=== PATIENT | female | born 1995 | race Caucasian/White ===

== ENCOUNTER 2018-04-19 15:12 | Observation (INO) ==
[2018-04-19 15:44] LABS: Basophils % 0.1 %; Eosinophils # 0.1 K/mcL (0.0-0.6); Hematocrit 33.2 % (35.3-44.9); Hemoglobin 10.6 g/dL (11.5-15.4); Immature Granulocytes % 0.3 % (0-4); Lymphocytes # 1.2 K/mcL (0.6-4.6); Lymphocytes % 14.2 %; Mean Corpuscular HGB Conc 31.9 g/dL (31.6-35.5); Mean Corpuscular Hemoglobin 26.4 pg (28.0-33.3); Mean Corpuscular Volume 82.6 fL (83.0-100.0); Mean Platelet Volume 12.2 fL (9.4-12.4); Monocytes # 0.6 K/mcL (0.0-1.3); Monocytes % 7.4 %; Neutrophils # 6.6 K/mcL (1.6-8.9); Platelet Count 194 K/mcL (140-400); Red Blood Count 4.02 M/mcL (3.82-4.97); Red Cell Distribution Width 13.4 % (11.5-14.5)
[2018-04-19 16:03] LABS: Alanine Aminotransferase 6 Units/L (7-52); Aspartate Amino Transferase 10 Units/L (13-39); BUN/Creatinine Ratio 10 (6-26); Blood Urea Nitrogen 4 mg/dL (6-20); Lactate Dehydrogenase 113 Units/L (140-271); Uric Acid 2.2 mg/dL (2.3-7.6); eGFR For Non-African Americans > 60 (> 60)
[2018-04-19 16:07] LABS: Protein/Creatinine Ratio,Urine 0.15 mg/mg (0.00-0.20)
[2018-04-19 16:08] LABS: Amphetamine Screen,Urine Negative ng/mL (Cutoff=1000); Barbiturate Screen,Urine Negative ng/mL (Cutoff=200); Benzodiazepines Screen,Urine Negative ng/mL (Cutoff=200); Cannabinoid Screen,Urine Negative ng/mL (Cutoff = 50); Cocaine Screen,Urine Negative ng/mL (Cutoff= 300); Opiate Screen,Urine Negative ng/mL (Cutoff=300); Phencyclidine Screen,Urine Negative ng/mL (Cutoff=25)
--- NOTE | 2018-04-19 16:32 | Discharge Summary ---
Date of Encounter: 04/19/18 Time of Encounter: 16:32 - Discharge Diagnosis (1) 25 weeks gestation of Priority: Primary Status: Acute Comments: Admit to observation for PIH evaluation Patient reports rare contractions but declined speculum exam for evaluation. (2) Elevated blood pressure affecting in second trimester, antepartum Priority: Secondary Status: Acute Comments: PIH evaluation all WNL, normotensive BP (3) Anemia affecting in second trimester Priority: Secondary Status: Acute Comments: RX sent to begin daily iron supplementation. Hgb 10.6 on CBC today. - Discharge Medications Prescriptions: New Ferrous Sulfate 325 mg PO DAILY #30 tablet Continue Vit No.129/Iron/FA [ One Daily Tablet] 1 each PO DAILY Home Medications: Ferrous Sulfate 325 mg PO DAILY #30 tablet 04/19/18 [Rx] Vit No.129/Iron/FA [ One Daily Tablet] 1 each PO DAILY 04/19/18 [History] Allergies/Adverse Reactions: Allergy/AdvReac Type Severity Reaction Status Date / Time Loracarbef [From Lorabid] Allergy Rash Verified 04/19/18 15:51 Data Procedures and tests throughout hospitalization: Laboratory Tests 04/19/18 04/19/18 04/19/18 15:30 15:30 15:34 WBC 8.6 RBC 4.02 Hgb 10.6 L Hct 33.2 L MCV 82.6 L MCH 26.4 L MCHC 31.9 RDW 13.4 Plt Count 194 MPV 12.2 Immature Gran % 0.3 Seg Neutrophils % 77.0 Lymphocytes % 14.2 Monocytes % 7.4 Eosinophils % 1.0 Basophils % 0.1 Neutrophils # 6.6 Lymphocytes # 1.2 Monocytes # 0.6 Eosinophils # 0.1 Basophils # 0.0 BUN Creatinine Est GFR ( Amer) Est GFR (Non-Af Amer) BUN/Creatinine Ratio Uric Acid AST ALT Lactate Dehydrogenase Urine Creatinine 192 Protein/Creatinin Ratio 0.15 Urine Total Protein 29 H Urine Opiates Screen Negative Ur Barbiturates Screen Negative Ur Phencyclidine Scrn Negative Ur Amphetamines Screen Negative U Benzodiazepines Scrn Negative Urine Cocaine Screen Negative U Marijuana (THC) Screen Negative Ur Drug Screen Interp See Below 04/19/18 15:34 WBC RBC Hgb Hct MCV MCH MCHC RDW Plt Count MPV Immature Gran % Seg Neutrophils % Lymphocytes % Monocytes % Eosinophils % Basophils % Neutrophils # Lymphocytes # Monocytes # Eosinophils # Basophils # BUN 4 L Creatinine 0.41 L Est GFR ( Amer) > 60 Est GFR (Non-Af Amer) > 60 BUN/Creatinine Ratio 10 Uric Acid 2.2 L AST 10 L ALT 6 L Lactate Dehydrogenase 113 L Urine Creatinine Protein/Creatinin Ratio Urine Total Protein Urine Opiates Screen Ur Barbiturates Screen Ur Phencyclidine Scrn Ur Amphetamines Screen U Benzodiazepines Scrn Urine Cocaine Screen U Marijuana (THC) Screen Ur Drug Screen Interp Labs on day of discharge: Labs from last 24 hours 04/19/18 04/19/18 04/19/18 15:34 15:34 15:30 WBC 8.6 RBC 4.02 Hgb 10.6 L Hct 33.2 L MCV 82.6 L MCH 26.4 L MCHC 31.9 RDW 13.4 Plt Count 194 MPV 12.2 Immature Gran % 0.3 Seg Neutrophils % 77.0 Lymphocytes % 14.2 Monocytes % 7.4 Eosinophils % 1.0 Basophils % 0.1 Neutrophils # 6.6 Lymphocytes # 1.2 Monocytes # 0.6 Eosinophils # 0.1 Basophils # 0.0 BUN 4 L Creatinine 0.41 L Est GFR ( Amer) > 60 Est GFR (Non-Af Amer) > 60 BUN/Creatinine Ratio 10 Uric Acid 2.2 L AST 10 L ALT 6 L Lactate Dehydrogenase 113 L Urine Creatinine 192 Protein/Creatinin Ratio 0.15 Urine Total Protein 29 H Urine Opiates Screen Ur Barbiturates Screen Ur Phencyclidine Scrn Ur Amphetamines Screen U Benzodiazepines Scrn Urine Cocaine Screen U Marijuana (THC) Screen Ur Drug Screen Interp 04/19/18 15:30 WBC RBC Hgb Hct MCV MCH MCHC RDW Plt Count MPV Immature Gran % Seg Neutrophils % Lymphocytes % Monocytes % Eosinophils % Basophils % Neutrophils # Lymphocytes # Monocytes # Eosinophils # Basophils # BUN Creatinine Est GFR ( Amer) Est GFR (Non-Af Amer) BUN/Creatinine Ratio Uric Acid AST ALT Lactate Dehydrogenase Urine Creatinine Protein/Creatinin Ratio Urine Total Protein Urine Opiates Screen Negative Ur Barbiturates Screen Negative Ur Phencyclidine Scrn Negative Ur Amphetamines Screen Negative U Benzodiazepines Scrn Negative Urine Cocaine Screen Negative U Marijuana (THC) Screen Negative Ur Drug Screen Interp See Below Date of admission: 04/19/18 15:12 Discharging clinician: Heidi Maya Anticipated date of discharge: 04/19/18 - Patient Status Disposition: Home, Self-Care Condition: Good Functional capacity at discharge: independent ambulation Overall status at discharge: patient is progressing back to baseline - Discharge Instructions Additional Instructions: LABOR AND DELIVERY DISCHARGE INSTRUCTIONS Signs and Symptoms to be Reported to your Doctor Immediately: * Sudden gush, continuous or intermittent lead of fluid from vagina (note the time of gush and color of fluid) * Onset of bright red vaginal bleeding with or without pain (if you had a vaginal exam during this visit you may notice some dark red spotting. This is normal.) * Lower abdominal cramping or backache that is premenstrual-like feeling. * More than 6 contractions in one hour. * Burning during urination, having to urinate more frequently or pain in your mid-back. * A change in the baby's activity. This could be an increase or decrease in activity. * Severe headache which does not go away with tylenol. * Sudden swelling in the face, hands, arms and/or legs. * Upper abdominal pain - sometimes associated with heartburn or nausea and is not relieved by Maalox, Mylanta or Tums. * Dizziness or blurred vision or visual disturbances (seeing stars/lights). * Kick Counts One hour after a meal, lay down on one side in a quiet place. Count the number of tran the baby moves during an hour. If less than 6 movements, notify your physician. Diet: *Force fluids - 8-10 tall glasses of fluid per day. May include popsicles and jello. *Limit caffeine - this includes chocolate, coffee, tea, any soft drink containing such as all collette, Babak Yellow and Mountain Dew - Diet and Activity Activity: resume usual activities as tolerated Diet: regular diet Hospital Course NURSE CHEMICAL DEPENDENCY Time Attestation: Total time spent providing and/or coordinating discharge services: Time Spent: Less than 30 minutes Exam - Constitutional General appearance IM: A&O X 3, pleasant, no acute distress, answers questions appropriately - Respiratory Respiratory exam: Present: CTAB - Cardiovascular Cardiovascular exam IM: Present: RRR, +S1, +S2 - GI/Abdominal GI/Abdominal exam IM: normal bowel sounds, soft - Rectal Rectal exam: deferred - Extremities Exam Extremities exam IM: Present: full ROM, normal capillary refill, normal inspection - Neurological Exam Neurological exam: alert, normal gait, oriented X3 - VTE Reasons for not Prescribing Prophylaxis: Treatment not Indicated - Low risk for VTE
== END 2018-04-19 16:36 | disposition home or self-care (01) ==
LOC: 1NENULAB
PROVIDERS: ADMIT Registered Nurse; ATTEND Registered Nurse

== ENCOUNTER → 2018-06-07 23:15 | Observation (INO) ==
[2018-06-07 18:31] LABS: Bilirubin,Urine Negative (Negative); Blood,Urine Negative (Negative); Clarity,Urine Clear (Clear); Color,Urine Dark Yellow (Yellow); Glucose,Urine (UA) 500 mg/dL (Normal); Ketones,Urine Trace mg/dL (Negative); Leukocyte Esterase,Urine Small (Negative); Nitrite,Urine Negative (Negative); Protein,Urine 30 mg/dL (Neg-Trace); Specific Gravity,Urine 1.027 (1.010-1.025); Urobilinogen,Urine Normal (Normal)
[2018-06-07 18:40] LABS: Amphetamine Screen,Urine Negative ng/mL (Cutoff=1000); Barbiturate Screen,Urine Negative ng/mL (Cutoff=200); Benzodiazepines Screen,Urine Negative ng/mL (Cutoff=200); Cannabinoid Screen,Urine Negative ng/mL (Cutoff = 50); Cocaine Screen,Urine Negative ng/mL (Cutoff= 300); Opiate Screen,Urine Negative ng/mL (Cutoff=300); Phencyclidine Screen,Urine Negative ng/mL (Cutoff=25)
--- NOTE | 2018-06-07 21:12 | OB/GYN Progress Note ---
Date of Encounter: 06/07/18 Time of Encounter: 21:01 - Assessment and Plan (1) 32 weeks gestation of Current Visit: Yes Status: Acute Admit to observation for contractions. (2) uterine contractions in third trimester, antepartum Current Visit: Yes Status: Acute -Initiate [place] course -IV fluids -Patient offered Procardia and Terbutaline to stop contractions. She refused both medications. States she was given Procardia in her previous and her heart rate slowed so much, she was unable to be awakened. She declined the Terbutaline after reviewing the side effects of the medication. She states she has anxiety and is feeling SOB and some upper chest pain. SPO2 monitor on at 99% on RA, heart rate low 100's. -Risks and benefits of receiving either of these medications reviewed and patient still declines both. -Patient is agreeable to staying overnight for observation with IV hydration. -Plan of care made in consultation with Dr. Monreal (3) NST (non-stress test) reactive Current Visit: Yes Status: Acute FHR 135 bpm, moderate variability, +15x15 accels, no decels. (4) Previous delivery in third trimester, antepartum Current Visit: Yes Status: Acute Previous delivery at 34 weeks in 2016 Subjective - Subjective Principal diagnosis: contractions Interval history: Mariah is a at 32w5d who presents to L&D with complaint of contractions all day today. She has a history of one at 34 weeks gestation and is currently on vaginal progesterone. Her last cervical length in February was 3.9cm. Today, she reports positive movement, denies vaginal bleeding and vaginal leakage. On arrival, she is noted to be cyndie frequently. Cervix is 1 cm and no change is noted in 3 hours. Antepartum ROS: movement normal, contractions, no loss of fluid, no vaginal bleeding Objective - Vital Signs Vital Signs: Vital Signs Resp 06/07/18 17:59 14 Intake and Output 06/07/18 06/07/18 06/07/18 07:59 15:59 23:59 Other: Weight 101 kg Patient Weight 06/07/18 23:59 Weight 101 kg - Exam FHR: category 1 FHR comments: FHR 135 bpm, moderate variability, +15x15 accels, no decels. Auscultation: bilateral: normal Abdomen: Present: normal appearance, soft, tenderness Cervical dilation: 1 cm Cervix effacement: 50% station: -3 - Labs Labs: Abnormal lab results Ur Specific [place] 1.027 (1.010-1.025) H 06/07/18 10:02 30 mg/dL (Neg-Trace) H 06/07/18 10:02 500 mg/dL (Normal) H 06/07/18 10:02 Trace mg/dL (Negative) H 06/07/18 10:02 Ur Leukocyte Esterase Small (Negative) H 06/07/18 10:02
--- NOTE | 2018-06-07 22:27 | Discharge Summary ---
Date of Encounter: 06/07/18 - Discharge Diagnosis (1) 32 weeks gestation of Status: Acute (2) uterine contractions in third trimester, antepartum Status: Acute (3) NST (non-stress test) reactive Status: Acute (4) Previous delivery in third trimester, antepartum Status: Acute - Discharge Medications Prescriptions: No Action Vit No.129/Iron/FA [ One Daily Tablet] 1 each PO DAILY Ferrous Sulfate 325 mg PO DAILY #30 tablet Progesterone 1 mg VG DAILY Home Medications: Ferrous Sulfate 325 mg PO DAILY #30 tablet 04/19/18 [Rx] Vit No.129/Iron/FA [ One Daily Tablet] 1 each PO DAILY 04/19/18 [History] Progesterone 1 mg VG DAILY 06/07/18 [History] Allergies/Adverse Reactions: Allergy/AdvReac Type Severity Reaction Status Date / Time Loracarbef [From Lorabid] Allergy Rash Verified 04/19/18 15:51 Data Procedures and tests throughout hospitalization: Laboratory Tests 06/07/18 06/07/18 10:02 17:59 Urine Color Dark Yellow Urine Clarity Clear Urine pH 7.0 Ur Specific [place] 1.027 H Urine Protein 30 H Urine Glucose (UA) 500 H Urine Ketones Trace H Urine Blood Negative Urine Nitrite Negative Urine Bilirubin Negative Urine Urobilinogen Normal Ur Leukocyte Esterase Small H Urine Opiates Screen Negative Ur Barbiturates Screen Negative Ur Phencyclidine Scrn Negative Ur Amphetamines Screen Negative U Benzodiazepines Scrn Negative Urine Cocaine Screen Negative U Marijuana (THC) Screen Negative Ur Drug Screen Interp See Below Labs on day of discharge: Labs from last 24 hours 06/07/18 06/07/18 17:59 10:02 Urine Color Dark Yellow Urine Clarity Clear Urine pH 7.0 Ur Specific [place] 1.027 H Urine Protein 30 H Urine Glucose (UA) 500 H Urine Ketones Trace H Urine Blood Negative Urine Nitrite Negative Urine Bilirubin Negative Urine Urobilinogen Normal Ur Leukocyte Esterase Small H Urine Opiates Screen Negative Ur Barbiturates Screen Negative Ur Phencyclidine Scrn Negative Ur Amphetamines Screen Negative U Benzodiazepines Scrn Negative Urine Cocaine Screen Negative U Marijuana (THC) Screen Negative Ur Drug Screen Interp See Below Preliminary micro results at discharge 06/07/18 10:02 Urine Culture - Preliminary Urine,Clean Catch Culture is incubating. Date of admission: 06/07/18 17:43 Hospital Course BUSINESS INTERN Time Attestation: Total time spent providing and/or coordinating discharge services: Exam - Constitutional Vitals: Resp 14 06/07/18 17:59 - VTE Reasons for not Prescribing Prophylaxis: Treatment not Indicated - Low risk for VTE
--- NOTE | 2018-06-07 22:37 | OB Labor Progress Note ---
Date of Encounter: 06/07/18 Time of Encounter: 22:33 Labor Progress Note - Subjective Subjective: Pt reports uc's getting stronger, no vb or lof. She states she feels like she is changing - Heart Tones Heart Tones: RNST - [place]: uc's q 2 min - Plan Plan: Pt reports uc's getting stronger and cvx was 1/th/high and she is now 2-3 /th/- 2. D/w pt concern over delivery and advised transfer to [facility] and she concurs. I spoke with [facility] and she was accepted in transfer.
[~2018-06-07 23:15] MED LIST: AMPICILLIN IVPB ONE; Betamethasone Acet/SodPhos 6 MG/ML MDV IM SCH; NIFEdipine 10 MG CAPSULE PO ONE; Ringers Solution, Lactated 1,000 ML IVC SCH; SODIUM CHLORIDE MINI 0.9% IVPB ONE; Terbutaline 1 MG/ML VIAL SQ ONE
== END | disposition other institution (70) ==
LOC: 1NENULAB
PROVIDERS: ADMIT Advanced Practice Midwife; ATTEND Advanced Practice Midwife

== ENCOUNTER → 2018-06-13 21:07 | Observation (INO) ==
--- NOTE | 2018-06-13 20:12 | OB/GYN Progress Note ---
Date of Encounter: 06/13/18 Time of Encounter: 20:08 - Assessment and Plan (1) 33 weeks gestation of Current Visit: Yes Status: Acute admitted for labor evaluation and rule out rupture of membranes (2) Vaginal discharge during in third trimester Current Visit: Yes Status: Acute speculum exam Subjective - Subjective Principal diagnosis: vaginal discharge Interval history: Patient is a 22 at 33w4d presents to labor and delivery with complaints leaking fluid last night. Patient reports "just feeling wet" today. Patient reports when she wiped she has some pink in her discharge. Patient reports occasional contractions and good movement. Patient reports she had labor last week and was sent to [facility]. She received both Steroid injections. Patient reports in office on 06/10/18 she was dilated 2cm. Patient denies any urinary symptoms, denies vaginal itching or burning. Patient denies intercourse in past 48 hours. Antepartum ROS: movement normal, contractions (occasional contractions), no vaginal bleeding Objective - Vital Signs Vital Signs: Intake and Output 06/13/18 06/13/18 06/13/18 07:59 15:59 23:59 Other: Weight 100.244 kg Patient Weight 06/13/18 23:59 Weight 100.244 kg - Exam FHR: auscultation normal, category 1 FHR comments: FHR baseline 140 bpm moderate variability +15x15 accels no decels noted. Auscultation: bilateral: normal Abdomen: Present: normal appearance, soft, gravid Uterus: Present: normal Cervical dilation: 2 Cervix effacement: 50 station: -3, ballotable Comments: Speculum exam: Negative pooling, negative nitrazine, Negative FERN.
[2018-06-13 20:29] LABS: Amphetamine Screen,Urine Negative ng/mL (Cutoff=1000); Barbiturate Screen,Urine Negative ng/mL (Cutoff=200); Benzodiazepines Screen,Urine Negative ng/mL (Cutoff=200); Cannabinoid Screen,Urine Negative ng/mL (Cutoff = 50); Cocaine Screen,Urine Negative ng/mL (Cutoff= 300); Opiate Screen,Urine Negative ng/mL (Cutoff=300); Phencyclidine Screen,Urine Negative ng/mL (Cutoff=25)
--- NOTE | 2018-06-13 20:56 | Discharge Summary ---
Date of Encounter: 06/13/18 Time of Encounter: 20:56 - Discharge Diagnosis (1) 33 weeks gestation of Priority: Primary Status: Acute Comments: Ruled out SROM (2) Vaginal discharge during in third trimester Priority: Secondary Status: Acute (3) NST (non-stress test) reactive on surveillance Priority: Secondary Status: Acute Comments: FHR baseline 135 bpm moderate variability +15x15 accels no decels noted. Cat. 1 tracing - Discharge Medications Prescriptions: No Action Vit No.129/Iron/FA [ One Daily Tablet] 1 each PO DAILY Ferrous Sulfate 325 mg PO DAILY #30 tablet Progesterone 1 mg VG DAILY Home Medications: Ferrous Sulfate 325 mg PO DAILY #30 tablet 04/19/18 [Rx] Vit No.129/Iron/FA [ One Daily Tablet] 1 each PO DAILY 04/19/18 [History] Progesterone 1 mg VG DAILY 06/07/18 [History] Allergies/Adverse Reactions: Allergy/AdvReac Type Severity Reaction Status Date / Time Loracarbef [From Lorabid] Allergy Rash Verified 04/19/18 15:51 Data Procedures and tests throughout hospitalization: Laboratory Tests 06/13/18 19:58 Urine Opiates Screen Negative Ur Barbiturates Screen Negative Ur Phencyclidine Scrn Negative Ur Amphetamines Screen Negative U Benzodiazepines Scrn Negative Urine Cocaine Screen Negative U Marijuana (THC) Screen Negative Ur Drug Screen Interp See Below Labs on day of discharge: Labs from last 24 hours 06/13/18 19:58 Urine Opiates Screen Negative Ur Barbiturates Screen Negative Ur Phencyclidine Scrn Negative Ur Amphetamines Screen Negative U Benzodiazepines Scrn Negative Urine Cocaine Screen Negative U Marijuana (THC) Screen Negative Ur Drug Screen Interp See Below Date of admission: 06/13/18 19:21 Discharging clinician: Shasta Mcpherson Anticipated date of discharge: 06/13/18 - Patient Status Disposition: Home, Self-Care Condition: Good Functional capacity at discharge: independent ambulation - Discharge Instructions Follow Up With: Shasta Mcpherson CNM [Non-Partnered Physician] - - Diet and Activity Activity: increase activity as tolerated Diet: regular diet Hospital Course [employer] Time Attestation: Total time spent providing and/or coordinating discharge services: Time Spent: Less than 30 minutes Exam - Constitutional General appearance IM: A&O X 3, pleasant, answers questions appropriately - Other Additional findings: FHR 135 bpm moderate amount of variability +15x15 accels no decels noted. 3 contractions noted lasting 40 seconds.
== END | disposition home or self-care (01) ==
LOC: 1NENULAB
PROVIDERS: ADMIT Advanced Practice Midwife; ATTEND Advanced Practice Midwife

== ENCOUNTER 2018-06-28 09:14 | Inpatient (IN) ==
[2018-06-28 10:42] LABS: Basophils % 0.1 %; Eosinophils # 0.1 K/mcL (0.0-0.6); Eosinophils % 0.8 %; Hematocrit 32.6 % (35.3-44.9); Hemoglobin 9.9 g/dL (11.5-15.4); Immature Granulocytes % 0.5 % (0-4); Lymphocytes # 1.4 K/mcL (0.6-4.6); Lymphocytes % 16.5 %; Mean Corpuscular HGB Conc 30.4 g/dL (31.6-35.5); Mean Corpuscular Hemoglobin 24.3 pg (28.0-33.3); Mean Corpuscular Volume 80.1 fL (83.0-100.0); Mean Platelet Volume 12.5 fL (9.4-12.4); Monocytes # 0.8 K/mcL (0.0-1.3); Monocytes % 9.5 %; Neutrophils # 6.1 K/mcL (1.6-8.9); Platelet Count 204 K/mcL (140-400); Red Blood Count 4.07 M/mcL (3.82-4.97); Red Cell Distribution Width 15.1 % (11.5-14.5); Segmented Neutrophils % 72.6 %
[2018-06-28 10:48] LABS: Amphetamine Screen,Urine Negative ng/mL (Cutoff=1000); Barbiturate Screen,Urine Negative ng/mL (Cutoff=200); Benzodiazepines Screen,Urine Negative ng/mL (Cutoff=200); Cannabinoid Screen,Urine Negative ng/mL (Cutoff = 50); Cocaine Screen,Urine Negative ng/mL (Cutoff= 300); Creatinine,Urine 135 mg/dL; Opiate Screen,Urine Negative ng/mL (Cutoff=300); Phencyclidine Screen,Urine Negative ng/mL (Cutoff=25); Protein/Creatinine Ratio,Urine 0.21 mg/mg (0.00-0.20)
--- NOTE | 2018-06-28 10:53 | OB/GYN History & Physical ---
Date of Encounter: 06/28/18 Time of Encounter: 10:50 Assessment and Plan (1) 35 weeks gestation of Current visit: Yes Status: Acute (2) labor in third trimester Current visit: Yes Status: Acute Admit to L&D for observation of labor Expectant management Labs-CBC and type and screen Pain management plan is natural childbirth GBS is unknown at this time-patient states she had the test collected at [facility], records pending Anticipate vaginal delivery Admission and plan of care per consult with Dr. Catherine Qualifiers: labor delivery status: with delivery in third trimester Fetus number: single or unspecified fetus Qualified Code(s): O60.14X0 - labor third trimester with delivery third trimester, not applicable or unspecified (3) Intact amniotic membranes during in third trimester Current visit: Yes Status: Acute (4) Type O blood, Rh negative Current visit: Yes Status: Acute Cord blood will be collected for analysis at time of delivery (5) NST (non-stress test) reactive Current visit: No Status: Acute (6) GBS (group B Streptococcus carrier), +RV culture, currently Current visit: Yes Status: Acute Penicillin per protocol History of Present Illness Chief complaint: contractions HPI: Ms. Kim is a 22 year old female at 35 weeks 5 days gestation with an estimated date of of 07/28/18 dated by LMP. She presents with complaint of contractions since 2:00 this morning. She reports initially labor 2 minutes apart and then spaced to 5 minutes apart and now are 2 minutes apart. 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 Her has been complicated by history of delivery and a history of preeclampsia. She was treated with progesterone and baby aspirin accordingly. She is followed by the midwives throughout her . records are available electronically and have been reviewed. Labs: O- GBS + Hep B- HIV- T. [place]adium- GC/CL- Rubella immune Varicella immune Past Med Surg Social Fam HX - Past Medical History Medical history: asthma Psychiatric history: anxiety - Past Surgical History Surgical History: other Additional surgical history: dental surgery - Social History Smoking Status: Never smoker Smokeless Tobacco Status: No Alcohol use: none Drug use: none - Family History Mother Name: Keyonna Living Status: Still Living Hx Family Cardiac Disorders: No Hx Family Respiratory Disorders: No Hx Family Cancer: No Hx Family GI Disorders: No Hx Family Endocrine Disorder: Yes (Diabetic) Hx Family Neuromuscular Disorders: No Hx Family Neurologic Disorders: No Hx Family HEENT Disorders: No Hx Family Autoimmune Disorders: No Obstetrical History - Pregnancies : 3 Para: 2 Term: 1 (# 1: 06/2014, normal spontaneous vaginal delivery (), 37wks, female, 6lbs 10oz, no complications, [place]) : 1 (# 2: 10/2015, normal spontaneous vaginal delivery (), 34wks, female, 5lbs 5oz, no complications, [place]) Ab's: 0 Livin Medications and Allergies Ferrous Sulfate 325 mg PO DAILY #30 tablet 04/19/18 [Rx] Vit No.129/Iron/FA [ One Daily Tablet] 1 each PO DAILY 04/19/18 [History] Allergy/AdvReac Type Severity Reaction Status Date / Time Loracarbef [From Lorabid] Allergy Rash Verified 06/17/18 13:51 Review of System OB All systems PM: reviewed and no additional remarkable complaints except as stated Exam - Constitutional Constitutional: well developed, well nourished, mild distress, obese - HEENT HEENT: PERRL, Normocephaly, Mucus Membranes Moist - Neck Neck exam: full ROM - Lungs Respiratory exam: CTAB - Cardiovascular Cardiovascular exam: RRR, +S1, +S2 - Breasts Breast: bilateral: normal - Abdomen Abdomen: Present: bowel sounds normal, gravid, non tender - Extremities Extremities exam: cyanotic, full ROM, normal capillary refill, normal inspection, radial pulses palpable and symmetrical - Vulva Vulva: bilateral: normal - Vagina Vagina: Present: normal moisture - Cervix Dilation: 4 Effacement: 80 Station: -2 - Uterus Uterus exam: Present: normal contour - Adnexa Adnexa: bilateral: normal - Anus/Rectum Anus/Rectum: Present: normal perianal skin Results Result Diagrams: 06/28/18 10:05 06/28/18 10:05 Abnormal lab results Hgb 9.9 g/dL (11.5-15.4) L 06/28/18 10:05 Hct 32.6 % (35.3-44.9) L 06/28/18 10:05 MCV 80.1 fL (83.0-100.0) L 06/28/18 10:05 MCH 24.3 pg (28.0-33.3) L 06/28/18 10:05 MCHC 30.4 g/dL (31.6-35.5) L 06/28/18 10:05 RDW 15.1 % (11.5-14.5) H 06/28/18 10:05 MPV 12.5 fL (9.4-12.4) H 06/28/18 10:05 Protein/Creatinin Ratio 0.21 mg/mg (0.00-0.20) H 06/28/18 10:05 28 mg/dL (1-14) H 06/28/18 10:05 All other labs normal. - VTE Reasons for not Prescribing Prophylaxis: Treatment not Indicated - Low risk for VTE
[2018-06-28 11:00] LABS: Alanine Aminotransferase 8 Units/L (7-52); Aspartate Amino Transferase 11 Units/L (13-39); BUN/Creatinine Ratio 20 (6-26); Blood Urea Nitrogen 9 mg/dL (6-20); Lactate Dehydrogenase 128 Units/L (140-271); Uric Acid 3.3 mg/dL (2.3-7.6); eGFR For Non-African Americans > 60 (> 60)
[2018-06-28] MEDS ORDERED: Ondansetron 4 MG/2 ML VIAL IVP PRN ×2 (11:03→21:38)
[2018-06-28] MEDS ORDERED: Naloxone 0.4 MG/ML INJ IVP PRN ×2 (11:03→21:38)
[2018-06-28] MEDS ORDERED: *HR* Nalbuphine 10 MG/ML AMPUL IVP PRN (11:03)
[2018-06-28] MEDS ORDERED: Metoclopramide 10 MG/2 ML VIAL IVP PRN ×2 (11:03→21:38)
[2018-06-28] MEDS ORDERED: Famotidine 20 MG/2 ML VIAL IVP PRN (11:03)
[2018-06-28] MEDS ORDERED: Ringers Solution, Lactated 1,000 ML IVC SCH ×2 (11:15→21:38)
[2018-06-28] MEDS ORDERED: Penicillin G Potassium 5,000,000 UNIT in D5% in Water (Mini-Bag+) 100 ML IVPB ONE (11:50)
[2018-06-28] MEDS ORDERED: Famotidine 20 MG/2 ML VIAL IVP ONE (13:42)
--- NOTE | 2018-06-28 14:11 | OB Labor Progress Note ---
Date of Encounter: 06/28/18 Time of Encounter: 14:09 Labor Progress Note - Subjective Subjective: Patient reports contractions are uncomfortable and rates them as 7 out of 10 - Cervix Cervix: 4-5/80/-2 - Heart Tones Heart Tones: Baseline 135 Moderate variability Accelerations present 15x15 No decelerations FHR Category I - [place]: Contractions every 3-4 minutes and palpate moderate - Interventions Interventions: SVE - Plan Physician notified: No Plan: Continue expectant management Frequent position changes May have intermittent periods off the monitor to ambulate Reassess cervix at 1630 Anticipate vaginal delivery
[2018-06-28] MEDS ORDERED: Penicillin G Potassium 2,500,000 UNIT in 0.9 % Sodium Chloride 100 ML IVPB SCH (16:00)
--- NOTE | 2018-06-28 16:46 | OB Labor Progress Note ---
Date of Encounter: 06/28/18 Time of Encounter: 16:43 Labor Progress Note - Subjective Subjective: Patient reports pain remained at 7 out of 10 with contractions - Cervix Cervix: 6/70/-2 - Heart Tones Heart Tones: Baseline 150 Moderate variability Accelerations present 15x15 No decelerations FHR category I - [place]: Contractions every 3-5 minutes and palpate strong - Interventions Interventions: SVE AROM moderate amount of clear fluid - Plan Physician notified: No Plan: Continue expectant management Frequent position changes Anticipate vaginal delivery
[2018-06-28] MEDS ORDERED: Lidocaine -MPF 1% 5 ML AMPUL ONE (17:08)
[2018-06-28] MEDS ORDERED: Bupivacaine/EPI 1:200k 0.25%PF 10 ML VIAL INFILT ONE (17:08)
[2018-06-28] MEDS ORDERED: Epidural Premix (fent/bupiv) 110 ML EP ONE (17:10)
[2018-06-28] MEDS ORDERED: Epidural Premix (fent/bupiv) 110 ML EP SCH (17:15)
[2018-06-28] MEDS ORDERED: Azithromycin 500 MG in D5% in Water 250 ML IVPB ONE (18:18)
--- NOTE | 2018-06-28 18:22 | OB Labor Progress Note ---
Date of Encounter: 06/28/18 Time of Encounter: 18:20 Labor Progress Note - Subjective Subjective: asked to come and assess the patient due to possible malpresentation. Patient just received epidural was comfortable going to assess the patient and felt what appeared to be a hand. On assessment patient's approximately 5-6 cm with a on sticking to the cervix up to the elbow. I was able to reduce the hand as soon as a let go it returned back into the vagina. Because she cannot reduce its patient is not complete it was decided this time patient will be prepped for a section. heart tones are stable I have someone holding pressure up against the head so this will be an unscheduled section. - Cervix Cervix: 6/80/-3 arm and hand presenting through the cervix - Heart Tones Heart Tones: heart tones 140s reactive - [place]: Contractions every 2 minutes - Interventions Interventions: Patient reprepped for a primary low transverse section
[2018-06-28] MEDS ORDERED: Propofol 500 MG/50 ML INFUS..BTL ONE (18:39)
[2018-06-28] MEDS ORDERED: Ringers Solution, Lactated 1,000 ML ONE (18:39)
[2018-06-28] MEDS ORDERED: *HR* Oxytocin 10 UNIT/ML VIAL IM ONE ×2 (18:40→19:07)
[2018-06-28] MEDS ORDERED: *HR* Morphine Sulfate/PF 10 MG/10 ML AMPUL ONE ×2 (18:44→19:05)
[2018-06-28] MEDS ORDERED: Ondansetron 4 MG/2 ML VIAL ONE (18:46)
[2018-06-28] MEDS ORDERED: Ketorolac 30 MG/ML VIAL ONE (18:46)
[2018-06-28] MEDS ORDERED: *HR* Succinylcholine 200 MG/10 ML VIAL IVP ONE (18:46)
[2018-06-28] MEDS ORDERED: Dexamethasone 4 MG/ML VIAL ONE (18:46)
--- NOTE | 2018-06-28 18:46 | OB Labor Progress Note ---
Date of Encounter: 06/28/18 Time of Encounter: 18:20 Labor Progress Note - Subjective Subjective: Patient reports she is comfortable with epidural now - Cervix Cervix: /-2 hand presentation - Heart Tones Heart Tones: Baseline 150 Moderate variability Accelerations present 15 x 15 Few Variable decelerations FHR category II - [place]: Contractions every 2-3 and palpate moderate to strong - Interventions Interventions: SVE - Plan Physician notified: Yes Physician notified details: Dr. Catherine called to room secondary to malpresentation with primary presenting part being the hand. Plan: hand presentation confirmed Care turned over to Dr. Catherine for primary low transverse
[2018-06-28] MEDS ORDERED: EPHEDrine 50 MG/ML VIAL ONE (18:48)
[2018-06-28] MEDS ORDERED: *HR* HYDROMORPHONE 2 MG/ML VIAL ONE (19:18)
--- NOTE | 2018-06-28 19:30 | OB/GYN Procedure Note ---
Section - Date of procedure: 06/28/18 Preop diagnosis: other (Intrauterine at 35-5/7 weeks, labor, malpresentation (Hand in the vagina)) Post-op diagnosis: same Procedure: primary low transverse Surgeon: Cy Catherine Quantitated Blood Loss: 500 Was there an marketing administrative assistant present: Yes Senior Svp: Mary Turner ([email or web address]) Billing Representative: Soniya Guzman Anesthesia Type: General section complications: none Disposition: L&D Recovery Room Specimens: Cord segment, Cord blood - Infant (s) Infant A Delivery Date: 06/28/18 Delivery Time: 18:35 Presentation: vertex, compound Route of delivery: other ( section) Gender: Female Viability: Viable Pounds: 6 Ounces: 0 Gram Weight: 2.72 kg at 1 minute: 9 at 5 minutes: 9 Shoulder Dystocia: not encountered Specimens collected: cord blood Placenta: spontaneous Cord: nuchal cord, delivered through nuchal - Narrative Narrative: Patient is a 22-year-old 3 para 1102 at 35-5/7 weeks who presented to labor and delivery with complaint of contractions. Patient was 1 cm on admission couple hours later the patient had progressed to 3-4. We continue to observe the patient and she continue make cervical change when she got to 6 cm she was admitted. She became uncomfortable and requested an epidural. Epidural was placed patient was then artificially ruptured clear fluid noted. On next vaginal exam it was noted that appeared to be hand in the vagina I was called to come and assess and was unable to reduce the arm. Because patient was still 5-6 m with this compound presentation a section was called. Procedure: Patient was taken the operating room where she was placed in the dorsal supine position prepped with Betadine then draped was applied. Timeout was then obtained. Patient at this point was still feeling sensation and it was noted this time that patient was make him further progression vaginally and the arm was protruding through the to the cervix. It was decided this time. With the patient to sleep and go quickly. Once general anesthesia had been administered and a Pfannenstiel incision was made with a scalpel and carried down through the underlying tissue to the fascia was then applied. The fascia was nicked in midline and extended laterally with Espinoza scissors. The rectus muscles were in the midline parietal peritoneum was tented up and entered sharply. This was extended superiorly and inferiorly bladder blade was then inserted and vesicouterine peritoneum was tented up and entered sharply extended laterally and the bladder flap was created digitally. The lower uterine segment was incised with a scalpel extended laterally with digital manipulation. Infant's head was then brought up through the incision followed by the arms and chest. The infant was noted have a nuchal cord which we delivered through the cord was clamped and cut was handed off to waiting pediatric team. Cord blood was collected and gases were need this time baby was crying. The placenta was then delivered spontaneously. Uterus was exteriorized and cleaned of all clots and debris within the lower uterine segment was then closed using 0 Vicryl in a running locking stitch via 2 layer closure. Good hemostasis was noted ovaries to be normal uterus was returned to the abdomen and gutters were cleaned of all clots and debris then copiously irrigated. No active bleeding was noted the fascia was then closed using a #1 stratafix in a running stitch and at this point because we did not have time to do a count, we did a x-ray to confirm no instruments were in the abdominal cavity. Hemostasis was confirmed to be clean the skin was then closed using a 4-0 Vicryl in a subcuticular manner followed by the application of the PRINEO dressing. All needles lap sponge counts were correct 3 she did receive preoperative antibiotics both Ancef 2 g and Zithromax 500 mg. She was taken to the recovery room where she will be observed for 2 hours before being taken postpone the floor.
--- NOTE | 2018-06-28 21:36 | Anesthesia Evaluation PreOp ---
Date of Encounter: 06/28/18 Time of Encounter: 17:00 - Past History Planned Operation: ALETHEA Cardiac History: Denies any Significant Hx Pulmonary History: Asthma MOBILE NURSE History: Denies Any Significant HX Other Medical History: Denies Any Significant HX Anesthesia History: No Prior Anesthetic Complications : Yes Test: Positive Alcohol Use: none Drug use: none Medications and Allergies Ferrous Sulfate 325 mg PO DAILY #30 tablet 04/19/18 [Rx] Vit No.129/Iron/FA [ One Daily Tablet] 1 each PO DAILY 04/19/18 [History] Allergy/AdvReac Type Severity Reaction Status Date / Time Loracarbef [From Lorabid] Allergy Rash Verified 06/17/18 13:51 - Meds/Allergy Pre-op Review Medications Reviewed: Yes Allergies Reviewed: Yes Beta Blockers on Current Med List: No Anesthesia Results - Labs 06/28/18 10:05 06/28/18 10:05 Anesthesia Exam Height: 1.7M Weight: 102KG NPO (# of Hours): NOON Pain Scale: 10 - HEENT Pupil (Motor): Pupils equal Mallampati: II Teeth: Normal Oral Opening: Greater than 3 - MOBILE NURSE LOC: Oriented MOBILE NURSE Motor: Normal RUE, Normal LUE, Normal RLE, Normal LLE, Normal Face MOBILE NURSE Sensory: Normal: RUE, LUE, RLE, LLE, Face - Cardiac Rhythm: Regular Murmur: None JVD: No Carotid Bruit: No - Pulmonary Breath Sounds: bilateral Clear Respiratory Effort: Symmetrical Anesthesia Assess/Plan ASA Score: 2 Level of consciousness: Cooperative Anesthetic Plan: Epidural Autologous Blood: Yes Monitoring Plan: Standard Monitors
[2018-06-28] MEDS ORDERED: Simethicone 80 MG TAB.CHEW PO PRN (21:38)
[2018-06-28] MEDS ORDERED: Measles/Mumps/Rubella Vacc 0.5 ML VIAL SQ ONE (21:38)
[2018-06-28] MEDS ORDERED: Oxytocin 20 units/ LR 1000 mL 20 UNIT/1,000 ML BAG IVC SCH (21:38)
[2018-06-28] MEDS ORDERED: Rho Immune Globulin 1,500 UNIT SYRINGE IM ONE (21:38)
[2018-06-28] MEDS ORDERED: Sennosides 8.6 MG TABLET PO PRN (21:38)
--- NOTE | 2018-06-28 21:41 | Anesthesia Procedures ---
Date of Encounter: 06/28/18 Time of Encounter: 17:00 Procedures: Anesthesia - Epidural/Spinal Patient ID/Chart reviewed: Yes Patient examined: Yes OB Eval: Gestational age: 35.5 OB Eval: : 3 OB Eval: Hx Para: 1 OB Eval: Dilated at (cm): 5 OB Eval: Contractions: Non-stressed pattern Consent Obtained: Yes Site Prep: Aseptic Technique, Sterile prep and drape Patient position: upright Amount of Local Anesthetic used: 3 Touhy Needle Gauge: 18 Touhy Needle Depth (cm): 8 Catheter Depth at Skin (cm): 8 Test Dose (1.5% Lido + Epi): Volume given (mls): 3 Test Dose Result: Negative Loading Dose: Other: bupivicaine 0.125% 10ml Loading Dose Administered: Thru Catheter Infusion Rate (mls/hr): [address]: Tegaderm, Tape Interspace Used: L4-L5 Loss of Resistance (LELIA): Yes Blood: No CSF: No Paresthesia: No Procedure: tolerated procedure well. VSS see nursing notes. Vitals + FHT's: stable throughout see nursing notes
--- NOTE | 2018-06-28 21:46 | Anesthesia Progress Note ---
Date of Encounter: 06/28/18 Time of Encounter: 17:30 Anesthesia Note - Note Note: called by OB staff, stat c section called for malpresentation. patient feeling perineum pressure. no pain in abdomen with contractions, extremely anxious. converted to IBRAHIMA SCHWARTZ, Grade 1 view, see anesthetic record. uneventful induction 06/28/18 21:42
--- NOTE | 2018-06-28 21:49 | Anesthesia Evaluation Post Op ---
Date of Encounter: 06/28/18 Time of Encounter: 21:15 - Lungs Lungs: Clear Ascult./Percussion - Airway Airway: Non-obstructed - Cardiovascular Regular Rate - Mental Status Mental Status: Alert & Oriented, Answers Appropriately - Pain Pain Scale: 0 - Nausea Vomiting Nausea Vomiting: Not Present - Hydration Hydration: NPO - Discharge PostOp Status: Transfer Patient to floor
[2018-06-28] MEDS: Ibuprofen 600 MG TABLET PO PRN (22:25)
[2018-06-29 04:52] LABS: Basophils % 0.1 %; Immature Granulocytes % 0.4 % (0-4); Lymphocytes # 0.9 K/mcL (0.6-4.6); Lymphocytes % 7.9 %; Mean Corpuscular HGB Conc 29.6 g/dL (31.6-35.5); Mean Corpuscular Hemoglobin 23.6 pg (28.0-33.3); Mean Corpuscular Volume 79.6 fL (83.0-100.0); Monocytes # 0.6 K/mcL (0.0-1.3); Monocytes % 5.4 %; Neutrophils # 10.2 K/mcL (1.6-8.9); Platelet Count 191 K/mcL (140-400); Red Blood Count 3.39 M/mcL (3.82-4.97); Red Cell Distribution Width 14.9 % (11.5-14.5); Segmented Neutrophils % 86.2 %
[2018-06-29] MEDS: *HR* OxyCODONE/APAP 5/325 TABLET PO PRN ×4 (06:19→20:31)
[2018-06-29] MEDS: Ibuprofen 600 MG TABLET PO PRN ×3 (06:19→21:46)
[2018-06-29] MEDS: Prenatal Vit/FA 1 EACH TABLET PO SCH (08:24)
[2018-06-29] MEDS: cephALEXin 500 MG CAPSULE PO SCH (08:25)
[2018-06-29] MEDS: Azithromycin 250 MG TABLET PO SCH (08:25)
--- NOTE | 2018-06-29 08:40 | OB/GYN Progress Note ---
Date of Encounter: 06/29/18 Time of Encounter: 08:37 - Assessment and Plan (1) delivery delivered Current Visit: Yes Status: Acute Pt meeting POD1 milestones. Treviño out this am. Clear diet for breakfast and progress as tolerated. Await ambulation, spontaneous void, and passage of flatus. Pt to ambulate in hallway today. Anticipate discharge home in am if pt meeting all milestones. (2) Anemia due to acute blood loss Current Visit: Yes Status: Acute (3) Type O blood, Rh negative Current Visit: Yes Status: Acute Subjective - Subjective Interval history: Pt reports feeling sore this am. No other complaints. Patient reports: appetite normal, pain well controlled : doing well ( ) Objective - Vital Signs Latest vital signs: Vital Signs Temp Pulse Resp BP Pulse Ox 06/29/18 07:48 97.8 F 88 16 111/71 06/29/18 03:13 98.1 F 92 14 126/79 95 06/29/18 00:45 98.2 F 90 14 130/81 97 06/28/18 23:45 97.6 F 91 14 128/83 96 06/28/18 22:45 97.9 F 85 14 140/71 99 06/28/18 22:15 97.5 F L 82 14 125/80 97 06/28/18 21:45 98.2 F 93 14 152/84 95 Intake and Output 06/28/18 06/29/18 06/29/18 23:59 07:59 15:59 Intake Total 500 / 500 Output Total 1150 / 1150 Balance -650 / -650 Intake: Oral 500 / 500 Output: Catheter 1150 / 1150 Other: Stool Characteristics Normal for Patient Normal for Patient Weight 101.7 kg - Exam Lungs: bilateral: normal Chest: Normal S1, Normal S2 Extremities: Present: normal Abdomen: Present: soft. Absent: distention Incision: Present: dressed Uterus: Present: firm Fundal Height: 2 (U/2) - Labs Labs: Laboratory Results - last 24 hr 06/28/18 06/28/18 06/28/18 10:05 10:05 10:05 WBC 8.4 RBC 4.07 Hgb 9.9 L Hct 32.6 L MCV 80.1 L MCH 24.3 L MCHC 30.4 L RDW 15.1 H Plt Count 204 MPV 12.5 H Immature Gran % 0.5 Seg Neutrophils % 72.6 Lymphocytes % 16.5 Monocytes % 9.5 Eosinophils % 0.8 Basophils % 0.1 Neutrophils # 6.1 Lymphocytes # 1.4 Monocytes # 0.8 Eosinophils # 0.1 Basophils # 0.0 BUN 9 Creatinine 0.44 L Est GFR ( Amer) > 60 Est GFR (Non-Af Amer) > 60 BUN/Creatinine Ratio 20 Uric Acid 3.3 AST 11 L ALT 8 Lactate Dehydrogenase 128 L Urine Creatinine 135 Protein/Creatinin Ratio 0.21 H Urine Total Protein 28 H Urine Opiates Screen Negative Ur Barbiturates Screen Negative Ur Phencyclidine Scrn Negative Ur Amphetamines Screen Negative U Benzodiazepines Scrn Negative Urine Cocaine Screen Negative U Marijuana (THC) Screen Negative Ur Drug Screen Interp See Below 06/29/18 04:33 WBC 11.9 H RBC 3.39 L Hgb 8.0 L D Hct 27.0 L MCV 79.6 L MCH 23.6 L MCHC 29.6 L RDW 14.9 H Plt Count 191 MPV 12.0 Immature Gran % 0.4 Seg Neutrophils % 86.2 Lymphocytes % 7.9 Monocytes % 5.4 Eosinophils % 0.0 Basophils % 0.1 Neutrophils # 10.2 H Lymphocytes # 0.9 Monocytes # 0.6 Eosinophils # 0.0 Basophils # 0.0 BUN Creatinine Est GFR ( Amer) Est GFR (Non-Af Amer) BUN/Creatinine Ratio Uric Acid AST ALT Lactate Dehydrogenase Urine Creatinine Protein/Creatinin Ratio Urine Total Protein Urine Opiates Screen Ur Barbiturates Screen Ur Phencyclidine Scrn Ur Amphetamines Screen U Benzodiazepines Scrn Urine Cocaine Screen U Marijuana (THC) Screen Ur Drug Screen Interp
[2018-06-29] MEDS ORDERED: NON-FORMULARY MEDICATION 1 EACH EACH (Prenatal Vit No.129/Iron/Fa [Prenatal One Daily Tabl PO SCH (09:00)
[2018-06-29] MEDS ORDERED: Rho Immune Globulin 1,500 UNIT SYRINGE IM ONE (14:23)
[2018-06-30] MEDS: Ibuprofen 600 MG TABLET PO PRN ×2 (02:40→07:40)
[2018-06-30] MEDS: Prenatal Vit/FA 1 EACH TABLET PO SCH (07:40)
[2018-06-30] MEDS: cephALEXin 500 MG CAPSULE PO SCH (07:40)
[2018-06-30] MEDS: Azithromycin 250 MG TABLET PO SCH (07:41)
[2018-06-30 09:16] VITALS: BP 120/80
--- NOTE | 2018-06-30 09:43 | Discharge Summary ---
Date of Encounter: 06/30/18 Time of Encounter: 09:37 - Discharge Diagnosis (1) delivery delivered Priority: Primary Status: Acute Comments: Stable in PP, pain well managed, does complain of gas pains, passing flatus, to lerates diet, bottle feeding, desires discharge. - Discharge Medications Prescriptions: New Docusate [Colace] 100 mg PO BID #30 capsule Ferrous Sulfate 325 mg PO BIDWM #60 tablet Simethicone [Gas-X] 80 mg PO TID PRN #14 tab.chew PRN Reason: Dyspepsia cephALEXin [Keflex] 500 mg PO BID #6 capsule Ibuprofen [Motrin] 600 mg PO Q6HR PRN #60 tablet PRN Reason: Cramping OxyCODONE/APAP 5/325 [Percocet 5/325 MG] 1 each PO Q4HR PRN 5 Days #20 tablet PRN Reason: Moderate pain 4-6 Azithromycin [Zithromax] 500 mg PO DAILY #3 tablet Continued Vit No.129/Iron/FA [ One Daily Tablet] 1 each PO DAILY Discontinued Ferrous Sulfate 325 mg PO DAILY #30 tablet Home Medications: Vit No.129/Iron/FA [ One Daily Tablet] 1 each PO DAILY 04/19/18 [History] Azithromycin [Zithromax] 500 mg PO DAILY #3 tablet 06/30/18 [Rx] Docusate [Colace] 100 mg PO BID #30 capsule 06/30/18 [Rx] Ferrous Sulfate 325 mg PO BIDWM #60 tablet 06/30/18 [Rx] Ibuprofen [Motrin] 600 mg PO Q6HR PRN #60 tablet 06/30/18 [Rx] OxyCODONE/APAP 5/325 [Percocet 5/325 MG] 1 each PO Q4HR PRN 5 Days #20 tablet 06/30/18 [Rx] Simethicone [Gas-X] 80 mg PO TID PRN #14 tab.chew 06/30/18 [Rx] cephALEXin [Keflex] 500 mg PO BID #6 capsule 06/30/18 [Rx] Allergies/Adverse Reactions: Allergy/AdvReac Type Severity Reaction Status Date / Time Loracarbef [From Lorabid] Allergy Rash Verified 06/17/18 13:51 Data Procedures and tests throughout hospitalization: Laboratory Tests 06/28/18 06/28/1806/28/19 10:05 10:05 10:05 WBC 8.4 RBC 4.07 Hgb 9.9 L Hct 32.6 L MCV 80.1 L MCH 24.3 L MCHC 30.4 L RDW 15.1 H Plt Count 204 MPV 12.5 H Immature Gran % 0.5 Seg Neutrophils % 72.6 Lymphocytes % 16.5 Monocytes % 9.5 Eosinophils % 0.8 Basophils % 0.1 Neutrophils # 6.1 Lymphocytes # 1.4 Monocytes # 0.8 Eosinophils # 0.1 Basophils # 0.0 BUN 9 Creatinine 0.44 L Est GFR ( Amer) > 60 Est GFR (Non-Af Amer) > 60 BUN/Creatinine Ratio 20 Uric Acid 3.3 AST 11 L ALT 8 Lactate Dehydrogenase 128 L Urine Creatinine 135 Protein/Creatinin Ratio 0.21 H Urine Total Protein 28 H Urine Opiates Screen Negative Ur Barbiturates Screen Negative Ur Phencyclidine Scrn Negative Ur Amphetamines Screen Negative U Benzodiazepines Scrn Negative Urine Cocaine Screen Negative U Marijuana (THC) Screen Negative Ur Drug Screen Interp See Below Screen Baby's Blood Type Mother's Blood Type Rhogam Indicated Rhogam Req for Mother 06/28/18 06/29/18 20:00 04:33 WBC 11.9 H RBC 3.39 L Hgb 8.0 L D Hct 27.0 L MCV 79.6 L MCH 23.6 L MCHC 29.6 L RDW 14.9 H Plt Count 191 MPV 12.0 Immature Gran % 0.4 Seg Neutrophils % 86.2 Lymphocytes % 7.9 Monocytes % 5.4 Eosinophils % 0.0 Basophils % 0.1 Neutrophils # 10.2 H Lymphocytes # 0.9 Monocytes # 0.6 Eosinophils # 0.0 Basophils # 0.0 BUN Creatinine Est GFR ( Amer) Est GFR (Non-Af Amer) BUN/Creatinine Ratio Uric Acid AST ALT Lactate Dehydrogenase Urine Creatinine Protein/Creatinin Ratio Urine Total Protein Urine Opiates Screen Ur Barbiturates Screen Ur Phencyclidine Scrn Ur Amphetamines Screen U Benzodiazepines Scrn Urine Cocaine Screen U Marijuana (THC) Screen Ur Drug Screen Interp Screen NEGATIVE Baby's Blood Type O RH POSITIVE Mother's Blood Type O RH NEGATIVE Rhogam Indicated YES Rhogam Req for Mother 1 Labs on day of discharge: Labs from last 24 hours 06/28/18 20:00 Screen NEGATIVE Baby's Blood Type O RH POSITIVE Mother's Blood Type O RH NEGATIVE Rhogam Indicated YES Rhogam Req for Mother 1 - Impressions ITS Impressions KUB X-Ray 06/28/18 18:55 IMPRESSION: Negative KUB. D/ / Otf Beck MD / Otf Beck MD Interpreting Provider: Otf Beck MD Date of admission: 06/28/18 09:14 Primary care physician: PCP NONE Discharging clinician: Oly Mariano Anticipated date of discharge: 06/30/18 - Patient Status Disposition: Home, Self-Care Condition: Good Functional capacity at discharge: independent ambulation Overall status at discharge: patient is progressing back to baseline - Discharge Instructions Follow Up With: NONE,PCP [Primary Care Provider] - Cy Catherine DO [Partnered Physician] - - Diet and Activity Activity: resume usual activities as tolerated Diet: regular diet Hospital Course Reason for admission: active labor, IUP - , section Delivery: section Episiotomy: none Laceration: none Other procedures: none complications: none Discharge diagnosis: delivery baby: female Hospital course: Section - Date of procedure: 06/28/18 Preop diagnosis: other (Intrauterine at 35-5/7 weeks, labor, malpresentation (Hand in the vagina)) Post-op diagnosis: same Procedure: primary low transverse Surgeon: Cy Catherine Quantitated Blood Loss: 500 Was there an export sales assistant present: Yes Pipe Bowl Paint Trimmer: Mary Turner ([email or web address]) [employer] Professional: Soniya Guzman Anesthesia Type: General section complications: none Disposition: L&D Recovery Room Specimens: Cord segment, Cord blood - Infant (s) Infant A Delivery Date: 06/28/18 Delivery Time: 18:35 Presentation: vertex, compound Route of delivery: other ( section) Gender: Female Viability: Viable Pounds: 6 Ounces: 0 Gram Weight: 2.72 kg at 1 minute: 9 at 5 minutes: 9 Shoulder Dystocia: not encountered Specimens collected: cord blood Placenta: spontaneous Cord: nuchal cord, delivered through nuchal Time Attestation: Total time spent providing and/or coordinating discharge services: Time Spent: Less than 30 minutes - VTE Reasons for not Prescribing Prophylaxis: Treatment not Indicated - Low risk for VTE Documentation of Mechanical Device: Intermittent pneumatic compression device Exam - Constitutional Vitals: Temp Pulse Resp BP Pulse Ox 98.3 F 86 14 120/80 97 06/30/18 09:12 06/30/18 09:12 06/30/18 09:12 06/30/18 09:12 06/30/18 09:12 General appearance IM: A&O X 3 - Respiratory Respiratory exam: Present: CTAB - Cardiovascular Cardiovascular exam IM: Present: RRR - GI/Abdominal GI/Abdominal exam IM: soft - Uterine Tone: Firm Uterus Position: At Umbilicus - Extremities Exam Extremities exam IM: Present: normal capillary refill, pedal edema - Neurological Exam Neurological exam: normal gait, oriented X3 - Psychiatric Additional comments: reports good mood
== END 2018-06-30 15:30 | disposition home or self-care (01) | DRG 540 ==
LOC: 1NENULAB → OBSVTOIN 09:14 → 1NENUOBS 21:32
PROVIDERS: ADMIT Advanced Practice Midwife; ATTEND Advanced Practice Midwife